=== PATIENT | male | born 1970 | race Caucasian/White ===

== ENCOUNTER → 2018-01-11 | Outpatient (REF) | LOC: ZLAB.WCH 08:30 | DX: Z01.89 Encounter for other specified special examinations (principal) ==

== ENCOUNTER → 2018-04-26 | Outpatient (REF) ==
[2018-04-26 17:14] LABS: PSA-TOTAL 0.2 ng/mL (0-4)
[2018-04-26 17:25] LABS: THYROID STIMULATING HORMONE 2.09 uIU/mL (0.465-4.680)
== END ==
LOC: ZLAB.WCH 16:07
PROVIDERS: Internal Medicine
DX: Z12.5 Encounter for screening for malignant neoplasm of prostate (principal)
CPT/HCPCS: G0103

== ENCOUNTER → 2019-08-28 | Outpatient (CLI) | payer MEDICARE | LOC: DIA.ED 11:04 | DX: E10.9 Type 1 diabetes mellitus without complications (principal); E78.5 Hyperlipidemia, unspecified; I10 Essential (primary) hypertension; Z79.4 Long term (current) use of insulin | CPT/HCPCS: G0108 ==

== ENCOUNTER → 2022-07-30 | Outpatient (CLI) | payer OTHER | LOC: COL.LAB 09:43 → COL.RAD 09:57 | DX: M47.816 Spondylosis without myelopathy or radiculopathy, lumbar region (principal); M17.0 Bilateral primary osteoarthritis of knee; M19.072 Primary osteoarthritis, left ankle and foot ==